=== PATIENT | male | born 1940 | race Two or more races ===

== ENCOUNTER 2017-08-03 02:14 | Emergency (ER) | payer MEDICARE, OTHER ==
[~2017-08-03] VITALS: Ht 165.1 cm; Wt 54.4 kg
[2017-08-03 02:18] VITALS: BP 168/71
[2017-08-03] MEDS ORDERED: IBUPROFEN 400 MG TABLET ONE (04:52)
[2017-08-03] MEDS ORDERED: IBUPROFEN 400 MG TABLET PO ONE (05:00)
== END 2017-08-03 05:18 | disposition home or self-care (01) ==
LOC: ER 02:17
DX: S93.601A Unspecified sprain of right foot, initial encounter (principal); E11.9 Type 2 diabetes mellitus without complications; I10 Essential (primary) hypertension; Z86.73 Personal history of transient ischemic attack (TIA), and cerebral infarction without residual deficits; Z95.5 Presence of coronary angioplasty implant and graft; W10.9XXA Fall (on) (from) unspecified stairs and steps, initial encounter; Y93.01 Activity, walking, marching and hiking; Y92.89 Other specified places as the place of occurrence of the external cause; Y99.8 Other external cause status
CPT/HCPCS: 73630-TC; A4606; Z7610